=== PATIENT | male | born 1960 | race Caucasian/White ===

== ENCOUNTER 2019-02-23 16:57 | Emergency (ER) | payer BC, SELFPAY ==
[2019-02-23 16:58] VITALS: BP 119/73; PULSE 59; RESP 16; TEMP 36.1; O2SAT 98; BMI 27.8
--- NOTE | 2019-02-23 17:30 | RAD_ITS ---
STUDY: X-RAY - RIGHT TIBIA AND FIBULA REASON FOR EXAM: Male, 58 years old. Laceration to the right lower leg TECHNIQUE: AP and lateral view(s) of the tibia and fibula were obtained. COMPARISON: None. FINDINGS: Normal visualized tibia. Normal visualized fibula. Soft tissue swelling with small amount of subcutaneous air identified. RAD/Tibia & Fibula 2 Views IMPRESSION: Soft tissue injury with laceration. No fracture. Electronically Signed: Tomás Thompson MD at 18:14 EDT , Service support ,
[2019-02-23] MEDS: Diphth,Pertuss(Acell),Tet Vac 0.5 ML Vial IM (17:36)
--- NOTE | 2019-02-23 17:59 | ED.DCSUM_ITS ---
- ER Visit Summary Date of Service: 02/23/19 Chief Complaint: Right leg laceration History of Present Illness: The patient is a 58 M with history of prostate cancer presented to the emergency department with a laceration to his right leg. Just prior to arrival the patient was out on his dock slipped and fell and his right leg got caught against 1 of the screws on the side of his dock and he has 3 lacerations to his right leg. He has been able to ambulate. He denies any other injuries. Unknown last tetanus immunization. He is not on blood thinners. Physical Examination: Patient has 3 separate lacerations to his right leg. They are in the mid anterior right leg. The most lateral laceration is approximately 6 cm. The more medial laceration is approximately 6 cm. The laceration on the medial aspect of his right leg is approximately 3 cm. Patient has visualized muscle but no visualized bone. Is able to plantarflex and dorsiflex. He has normal distal pulses and sensation. Test Results: X-ray right tibia and fibula show no foreign body. Emergency Department Course and Treatment: Tetanus updated. After anesthetization the wounds were thoroughly irrigated via pressure wash syringe with 150 cc in total to each of the 3 lacerations and then cleansed with Hibiclens. The patient's 3 lacerations were all closed with sutures. The two 6 cm lacerations required 2, and 3, horizontal mattress sutures and then multiple simple sutures. The more medial small laceration required one horizontal mattress and 3 simple sutures. Treatment Plan: Because this is a complex laceration on a dirty wood and metal screw the patient will be prophylactically placed on Keflex. He was advised on rest ice and elevation. He was advised to have a wound check through his doctor in 2 to 3 days and then wait 10 days to have sutures removed. Disposition: Discharged home Impression: Complex right leg laceration This note was generated with [employer] dictation software. It may contain incorrect words, spelling, and punctuation that were not noted in review of the chart prior to signing ED Disposition - Plan for ED Patient: Disposition: Home or Assisted Living Instructions: ED Laceration Ext Sutr Stap Tape Prescriptions: Cephalexin [Keflex] 500 mg PO Q6 #28 cap Referrals: Charlie De Leon MD [Primary Care Provider] - 10 Day for suture removal Additional Instructions: Keep wounds clean and dry. You may shower but do not soak in bath water. Dry thoroughly. Pain twice daily and apply antibiotic ointment to each laceration. Ice and elevate your leg to prevent swelling. Tylenol and Motrin for pain. Watch for any signs of infection such as redness, pus, fever or significant swelling. If seen return. Suture removal in 10 days either by her primary care physician or back in the emergency department. We are going to start you on Keflex and antibiotic 1 pill 4 times a day for 7 days because these are deep wounds and will try to do anything possible to prevent an infection.
--- NOTE | 2019-02-23 18:23 | ED.DEP ---
ED Disposition - Plan for ED Patient: Disposition: Home or Assisted Living Instructions: ED Laceration Ext Sutr Stap Tape Prescriptions: Cephalexin [Keflex] 500 mg PO Q6 #28 cap Referrals: Charlie De Leon MD [Primary Care Provider] - 10 Day for suture removal Additional Instructions: Keep wounds clean and dry. You may shower but do not soak in bath water. Dry thoroughly. Pain twice daily and apply antibiotic ointment to each laceration. Ice and elevate your leg to prevent swelling. Tylenol and Motrin for pain. Watch for any signs of infection such as redness, pus, fever or significant swelling. If seen return. Suture removal in 10 days either by her primary care physician or back in the emergency department. We are going to start you on Keflex and antibiotic 1 pill 4 times a day for 7 days because these are deep wounds and will try to do anything possible to prevent an infection.
[2019-02-23 19:03] VITALS: RESP 18
== END 2019-02-23 19:04 | disposition home or self-care (01) ==
PROVIDERS: Emergency Provider Physician Assistant Medical; Family Provider Family Medicine; PCP Family Medicine
DX: S81.811A Laceration without foreign body, right lower leg, initial encounter (principal); W01.0XXA Fall on same level from slipping, tripping and stumbling without subsequent striking against object, initial encounter; Y93.9 Activity, unspecified; Y92.89 Other specified places as the place of occurrence of the external cause
CPT/HCPCS: 12005; 73590; 90471; 90715; 99283

== ENCOUNTER 2019-04-04 08:45 | Outpatient (RCR) | payer BC, SELFPAY ==
[2019-03-20 10:24] VITALS: BMI 27.7
--- NOTE | 2019-03-20 12:44 | HP.PCM_ITS ---
(1) Wound dehiscence Status: Acute Current Visit: Yes Code(s): T81.30XA - Disruption of wound, unspecified, initial encounter (2) Wound of right lower extremity Status: Acute Current Visit: Yes Code(s): S81.801A - Unspecified open wound, right lower leg, initial encounter Comment: Traumatic , penetrating with fat layer exposed. History of Present Illness Date of Service: 03/20/19 Chief Complaint: Nonhealing right lower extremity wound. History of Wound: Mr. Harris is a 58-year-old who was in a stable state of health until about 4 weeks ago when he sustained an injury to his right lower extremity after a fall through his boating dock and had some screws ripped through his right lower extremity. He was subsequently seen at the emergency room and had sutures applied. These were removed 9 days after. After removal of the stitches, he had Steri-Strips applied to the wound however he continuously noted breakdown. Recently seen by his primary care physician who referred him to the wound center. Currently on clindamycin and has a prescription through to the . Reports significant amount of drainage. States that he has to change his dressing about 3 times daily. No known history of diabetes mellitus. Feels well otherwise. Past Medical History Allergies/Adverse Reactions: Allergies No Known Allergies Allergy (Verified 02/23/19 16:58) Home Medications: Ambulatory Orders Medication Instructions Recorded Cephalexin [Keflex] 500 mg PO Q6 #28 cap 02/23/19 Smoking Status: Former smoker Review of Systems Constitutional: Denies: Anorexia, Chills, Fever Eyes: Denies: Blurred vision, Pain HEENT: Denies: Difficulty Hearing, Difficulty Swallowing Cardiovascular: Denies: Chest Pain, Chest Pressure Respiratory: Denies: Hemoptysis Gastrointestinal: Denies: Abdominal Pain, Hematemesis, Vomiting Skin: Denies: Jaundice - Physical Exam General: Alert, Oriented x3, Cooperative, No apparent distress HEENT: Atraumatic, Normocephalic Oral: Moist Mucosa Neck: Supple Lungs: Clear to auscultation, Normal air movement Cardiovascular: Regular rate, Regular Rhythm, Normal S1, Normal S2 Abdomen: Soft, Non Tender Extremities: No cyanosis Skin: Ulcer/ Wound Wound Measurements and Assessment WC - Nurse 1 - General Ulcer Measurement Start: 03/20/19 10:24 Freq: Status: Active Protocol: Activity Type Activity Date Activity User E-Sign Co-Sign Detail Recorded Client Recorded Date Recorded By Document 03/20/19 10:24 DV [id number] 03/20/19 11:00 DV 03/20/19 10:24 Wound Center Nurse 1 [Ulcer Assessment] #1 Right [place] -Combined with other wound No -Current Size (cm) - Length 6.5 -Current Size (cm) - Width 1.0 -Total Square Cm 6.50 -Date of Last Picture (Recall this 03/20/19 field) -Photo Taken Yes -Epithelialization None Present -Tunneling No -Undermining/Tunneling No -Circular Undermining No -Classification - Thickness Full Thickness without Exposed Support Structure -Exudate Amt Large -Exudate Type Yellow/Green -Wound Margin Flat & Intact -Granulation Amt None Present (0 %) -Granulation Quality N/A -Slough/Fibrin Yes -Necrosis Amt Large (67-100%) -Necrotic Tissue Type Adherent Slough -Structure Exposed None/Limited to Skin Breakdown -Texture (Lise-wound Skin Appearance) Assessed, Scarring -Moisture (Lise-wound Skin Appearance Assessed, ) Weeping -Color (Lise-wound Skin Appearance) Assessed, Erythema -Temperature (Lise-wound Skin No Abnormality Appearance) (Pt Warm) -Tenderness on Palpation (Lise-wound No Skin Appearance) -Ulcer Cleansing Rinsed/ Irrigated with Saline -Foul Odor after Cleansing No -Anesthetic Used 5% Lidocaine Gel [Edema Assessment] -Lower Limb Edema Present No -Right Calf (cm) 38.0 -Right Ankle (cm) 21.5 -Left Calf (cm) 36.0 -Left Ankle (cm) 25.0 WC - Nurse 2 - General Ulcer CM Notes Start: 03/20/19 10:24 Freq: Status: Active Protocol: Activity Type Activity Date Activity User E-Sign Co-Sign Detail Recorded Client Recorded Date Recorded By Document 03/20/19 11:13 MW [id number] 03/20/19 11:19 MW 03/20/19 11:13 Wound Center Nurse 2 [Procedure/Treatment] #1 Right [place] -Time 11:13 -Correct Patient Yes -Correct Side, Site, Position Yes -Correct Procedure Yes -Procedure Performed Yes -Type of Procedure Debridement -Clinical Debridement Subcutaneous -Post Debridement Size (cm) - Length 6.7 -Post Debridement Size (cm) - Width 1.5 -Post Debridement Size (cm) - Depth 1.8 -Total Square Cm 10.05 -Wound/Ulcer Outcome Not Healed -Ulcer Cleansing Rinsed/ Irrigated with Saline -Foul Odor after Cleansing No -Bioengineered Tissue No -Bleeding Controlled with Pressure -Offloading No -Treatment Response Procedure Tolerated Well [See Physician Procedure note for Specifics] Pain Scale: 0-10 Numeric [Pain] -Is Patient Pain Free? Yes Musculoskeletal: No Muscle Wasting Neurological: Cranial nerves II-XII grossly intact Psych/Mental Status: Normal Affect Debridement Note Post-Debridement Measurements/Treatment WC - Nurse 2 - General Ulcer CM Notes Start: 03/20/19 10:24 Freq: Status: Active Protocol: Activity Type Activity Date Activity User E-Sign Co-Sign Detail Recorded Client Recorded Date Recorded By Document 03/20/19 11:13 MW [id number] 03/20/19 11:19 MW 03/20/19 11:13 Wound Center Nurse 2 #1 Right [place] -Time 11:13 -Correct Patient Yes -Correct Side, Site, Position Yes -Correct Procedure Yes -Procedure Performed Yes -Type of Procedure Debridement -Clinical Debridement Subcutaneous -Post Debridement Size (cm) - Length 6.7 -Post Debridement Size (cm) - Width 1.5 -Post Debridement Size (cm) - Depth 1.8 -Total Square Cm 10.05 -Wound/Ulcer Outcome Not Healed -Ulcer Cleansing Rinsed/ Irrigated with Saline -Foul Odor after Cleansing No -Bioengineered Tissue No -Bleeding Controlled with Pressure -Offloading No -Treatment Response Procedure Tolerated Well Pain Scale: 0-10 Numeric Is Patient Pain Free? Yes Wound debrided: Right lower extremity Wound Grade/Stage: Stage III Type of Debridement: Excisional debridement Anesthesia Used: 4% Lidocaine Solution Depth: Down to and including healthy tissue, in the subcutaneous layer Percentage of wound debrided: 100 Instrument Used: 5mm curette Tissue Removed: Slough and devitalized tissue Severity: Fat Layer Exposed Amount of bleeding with debridement: Mild Bleeding Controlled with: Pressure Patient tolerated procedure well Assessment/Plan Active Problems Wound dehiscence (Acute) Wound of right lower extremity (Acute) Traumatic , penetrating with fat layer exposed. Assessment: Same as above Plan: Debridement done as documented above. Procedure was well-tolerated. Significant depth and drainage appreciated. I believe he will do very well with a wound VAC and meets necessity due to copious amount of drainage and depth. For now, Aquacel silver daily to twice daily depending drainage with ABD over top. Double layer Tubigrip for edema management. Advised to elevate lower extremities when seated and in bed. Increased protein intake and supplements recommended. Complete current course of antibiotic. All his questions were answered and he was advised to call with any further questions or concerns. Follow-up in 1 week. This note was generated with [email or web address] dictation software. It may contain incorrect words, spelling, and punctuation that were not noted in checking the note before signing.
[2019-03-27 08:04] VITALS: BP 147/86; PULSE 66; RESP 18; TEMP 36.6; BMI 27.7
--- NOTE | 2019-03-27 09:00 | PN.PCM_ITS ---
(1) Wound dehiscence Status: Acute Current Visit: Yes Code(s): T81.30XA - Disruption of wound, unspecified, initial encounter (2) Wound of right lower extremity Status: Acute Current Visit: Yes Code(s): S81.801A - Unspecified open wound, right lower leg, initial encounter Comment: Traumatic , penetrating with fat layer exposed. Type of Wound Date of Service: 03/27/19 Chief Complaint: Nonhealing right lower extremity wound. History of Wound: Mr. Harris is a 58-year-old who was in a stable state of health until about 4 weeks ago when he sustained an injury to his right lower extremity after a fall through his boating dock and had some screws ripped through his right lower extremity. He was subsequently seen at the emergency room and had sutures applied. These were removed 9 days after. After removal of the stitches, he had Steri-Strips applied to the wound however he continuously noted breakdown. Recently seen by his primary care physician who referred him to the wound center. Currently on clindamycin and has a prescription through to the . Reports significant amount of drainage. States that he has to change his dressing about 3 times daily. No known history of diabetes mellitus. Feels well otherwise. Progress of Wound: Stable. No new concerns at this time. - Physical Exam Vital Signs Temp Pulse Resp BP 98 F 66 18 147/86 H 03/27/19 08:04 03/27/19 08:04 03/27/19 08:04 03/27/19 08:04 General: Alert, Oriented x3, Cooperative HEENT: Atraumatic, Normocephalic Oral: Moist Mucosa Neck: Supple Lungs: Normal air movement Extremities: No cyanosis Skin: Ulcer/ Wound Wound Measurements and Assessment WC - Nurse 1 - General Ulcer Measurement Start: 03/20/19 10:24 Freq: Status: Active Protocol: Activity Type Activity Date Activity User E-Sign Co-Sign Detail Recorded Client Recorded Date Recorded By Document 03/27/19 08:04 [place] [id number] 03/27/19 08:10 DL 03/27/19 08:04 Wound Center Nurse 1 [Ulcer Assessment] #1 Right [place] -Current Size (cm) - Length 5.3 -Current Size (cm) - Width 1.3 -Current Size (cm) - Depth 0.7 -Total Square Cm 6.89 -Photo Taken No -Exudate Amt Small -Exudate Type Serosanguineous -Wound Margin Fibrotic Scar, Thickened Scar -Granulation Amt Medium (34-66%) -Granulation Quality Red -Necrosis Amt Medium (34-66%) -Necrotic Tissue Type Adherent Slough -Structure Exposed N/A -Texture (Lise-wound Skin Appearance) Localized Edema ,Scarring -Moisture (Lise-wound Skin Appearance No Abnormality ) -Color (Lise-wound Skin Appearance) Erythema -Temperature (Lise-wound Skin No Abnormality Appearance) (Pt Warm) -Tenderness on Palpation (Lise-wound No Skin Appearance) -Ulcer Cleansing Rinsed/ Irrigated with Saline -Foul Odor after Cleansing No -Anesthetic Used 5% Lidocaine Gel WC - Nurse 2 - General Ulcer CM Notes Start: 03/20/19 10:24 Freq: Status: Active Protocol: Activity Type Activity Date Activity User E-Sign Co-Sign Detail Recorded Client Recorded Date Recorded By Document 03/27/19 08:22 MW [id number] 03/27/19 08:25 MW 03/27/19 08:22 Wound Center Nurse 2 [Procedure/Treatment] -Time 08:22 -Correct Patient Yes -Correct Side, Site, Position Yes -Correct Procedure Yes -Procedure Performed Yes -Type of Procedure Debridement -Clinical Debridement Subcutaneous -Post Debridement Size (cm) - Length 6.0 -Post Debridement Size (cm) - Width 1.3 -Post Debridement Size (cm) - Depth 1.5 -Total Square Cm 7.80 -Wound/Ulcer Outcome Not Healed -Ulcer Cleansing Rinsed/ Irrigated with Saline -Foul Odor after Cleansing No -Bioengineered Tissue No -Bleeding Controlled with Pressure -Offloading No -Treatment Response Procedure Tolerated Well [See Physician Procedure note for Specifics] Pain Scale: 0-10 Numeric [Pain] -Is Patient Pain Free? Yes Musculoskeletal: No Muscle Wasting Neurological: Cranial nerves II-XII grossly intact Psych/Mental Status: Normal Affect Debridement Note Post-Debridement Measurements/Treatment - Nurse 2 - General Ulcer CM Notes Start: 03/20/19 10:24 Freq: Status: Active Protocol: Activity Type Activity Date Activity User E-Sign Co-Sign Detail Recorded Client Recorded Date Recorded By Document 03/20/19 11:13 MW [id number] 03/20/19 11:19 MW Document 03/27/19 08:22 MW [id number] 03/27/19 08:25 MW 03/20/19 03/27/19 11:13 08:22 Wound Center Nurse 2 #1 Right [place] -Time 11:13 08:22 -Correct Patient Yes Yes -Correct Side, Site, Position Yes Yes -Correct Procedure Yes Yes -Procedure Performed Yes Yes -Type of Procedure Debridement Debridement -Clinical Debridement Subcutaneous Subcutaneous -Post Debridement Size (cm) - Length 6.7 6.0 -Post Debridement Size (cm) - Width 1.5 1.3 -Post Debridement Size (cm) - Depth 1.8 1.5 -Total Square Cm 10.05 7.80 -Wound/Ulcer Outcome Not Healed Not Healed -Ulcer Cleansing Rinsed/ Rinsed/ Irrigated with Irrigated with Saline Saline -Foul Odor after Cleansing No No -Bioengineered Tissue No No -Bleeding Controlled with Pressure Pressure -Offloading No No -Treatment Response Procedure Procedure Tolerated Well Tolerated Well Pain Scale: 0-10 Numeric Is Patient Pain Free? Yes Yes Wound debrided: Right Lower extremity Wound Grade/Stage: Stage III Type of Debridement: Excisional debridement Anesthesia Used: 4% Lidocaine Solution Depth: Down to and including healthy tissue, in the subcutaneous layer Percentage of wound debrided: 100 Instrument Used: 3mm curette Tissue Removed: Slough and devitalized tissue Severity: Fat Layer Exposed Amount of bleeding with debridement: Mild Bleeding Controlled with: Pressure Patient tolerated procedure well Assessment/Plan Active Problems Wound dehiscence (Acute) Wound of right lower extremity (Acute) Traumatic , penetrating with fat layer exposed. Assessment: Same as above Plan: Debridement done as documented above. Procedure was well-tolerated. Mild improvement in the past week. SNAP not approved due to insurance mix up. For now, continue Aquacel silver daily to twice daily depending on drainage with ABD over top. Drainage however said to be improving. Double layer Tubigrip for edema management. Advised to elevate lower extremities when seated and in bed. Increased protein intake and supplements recommended. Complete current course of antibiotic. All his questions were answered and he was advised to call with any further questions or concerns. Follow-up in 1 week. This note was generated with [employer] software. It may contain incorrect words, spelling, and punctuation that were not noted in checking the note before signing.
[2019-04-04 09:00] VITALS: BP 121/87; PULSE 58; RESP 16; TEMP 36.2; BMI 27.7
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
== END 2019-04-10 23:59 ==
LOC: WC 08:45
PROVIDERS: Family Provider Family Medicine; PCP Family Medicine; Visit Provider Internal Medicine
DX: T81.30XA Disruption of wound, unspecified, initial encounter (principal); S81.831A Puncture wound without foreign body, right lower leg, initial encounter; W17.89XA Other fall from one level to another, initial encounter; Z87.891 Personal history of nicotine dependence
CPT/HCPCS: 11042; 99213; G0463

== ENCOUNTER 2019-05-02 09:30 | Outpatient (RCR) | payer BC, SELFPAY ==
[2019-04-11 01:10] VITALS: BP 121/87; PULSE 58; RESP 16; TEMP 36.2
[2019-04-11 08:05] VITALS: BP 143/83; PULSE 68; RESP 18; TEMP 36.6; BMI 27.7
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
[2019-04-25 08:13] VITALS: BP 117/71; PULSE 55; RESP 18; TEMP 36.2; BMI 27.7
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
[2019-05-02 09:41] VITALS: BP 141/81; PULSE 64; RESP 18; TEMP 36.2; BMI 27.7
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
== END 2019-05-11 23:59 ==
LOC: WC 09:30
PROVIDERS: Family Provider Family Medicine; PCP Family Medicine; Visit Provider Internal Medicine
DX: T81.30XA Disruption of wound, unspecified, initial encounter (principal); S81.801A Unspecified open wound, right lower leg, initial encounter; W17.89XA Other fall from one level to another, initial encounter
CPT/HCPCS: 11042; 99213; G0463

== ENCOUNTER → 2023-01-16 | Outpatient (CLI) | payer MEDICAID, SELFPAY ==
--- NOTE | 2023-01-16 | FLU_PTH ---
PATIENT: JAMES HUYNH LOC: [facility] U#:[id number] AGE/SX: 62/M ROOM: RE01/16/[address]: Dr. Graciela Rojo MD : 1960 BED: DIS: 01/16/2023 SPEC #: [id number] RECD: 01/16/23 16:49 STATUS: SAROJ REKenneth #: [id number] MAY: 01/16/23 00:[address]: Graciela Rojo DEPT: CYTOLOGY RECD BY: Alex Dixon ENTERED: 01/17/23 11:44 SP TYPE: Fluid OTHR DR: Dr. Charlie De Leon MD Tissues: A - Thyroid gland, NOS B - Thyroid gland, NOS Procedures: Special Stain Group II Surgery Specimen Level IV Cytospin Fluid HEADER OPERATION: Fine needle aspiration right thyroid PRE-OP DIAGNOSIS: Abnormal thyroid ultrasound TISSUE SUBMITTED: A ? FNA right thyroid fluid, B - FNA right thyroid x6 slides DIAGNOSIS CYTOLOGY A. Right thyroid nodule fluid, fine needle aspiration (cytospin and cell block): Consistent with benign follicular/colloid nodule ([place] Category II). Adequate for evaluation. See comment. B. Right thyroid nodule, fine needle aspiration (smears): Consistent with benign follicular/colloid nodule ([place] Category II). Adequate for evaluation. See comment. ZOHAIB:philippe 01/18/2023 COMMENT Correlation with clinical, radiologic findings and appropriate follow up are necessary. CYTOLOGY STUDY Slides are reviewed. CYTOLOGY GROSS A - Received is 30 ml of red cloudy fluid labeled with the patient's name and and designated per the requisition as right thyroid. Submitted for cytology preparation including cell block. B - Received are six smears labeled with the patient's name and designated per the requisition as right thyroid. Submitted for staining. / philippe 01/17/2023 TC:5 CPT: 05540 x2, 82114
== END | disposition home or self-care (01) ==
PROVIDERS: PCP Family Medicine; Referring Provider Surgery; Visit Provider Surgery
DX: E04.1 Nontoxic single thyroid nodule (principal)
CPT/HCPCS: 88108; 88305; 88313